=== PATIENT | female | born 1965 | race Caucasian/White ===

== ENCOUNTER → 2016-09-21 | Outpatient (CLI) | payer OTHER ==
[~2016-09-21] MED LIST: ASPIRIN ADULT L81 MG; ATENOLOL25 MG; CLEOCIN HCL150 MG PO; DARVOCET N 1001 TAB PO; DOXYCYCLINE MO100 MG PO; FAMOTIDINE40 MG; FLEXERIL5 MG PO; K-POTASSIUM CH20 MEQ; LASIX40 MG PO; LISINOPRIL HCTZ1 TA1; LISINOPRIL10 M1 PO; MICARDIS80 MG; MOBIC15 MG PO; OXYBUTYNIN5 MG PO; PEN-VEE K500 MG PO; PREDNISONE20 M1 PO; ROBITUSSIN AC 110 ML PO; ROBITUSSIN DM 105 ML PO; SYNTHROID25 MCG PO; TENORMIN25 M1 PO; TRAMADOL HCL50 MG PO; VESICARE5 MG; VITAMIN D22000 UNIT PO; VOLTAREN50 M1 PO; ZITHROMAX Z PA250 MG PO; ZITHROMAX250 MG PO
== END | disposition home or self-care (01) ==
LOC: PHLEB 02:50
DX: D75.1 Secondary polycythemia (principal)

== ENCOUNTER → 2016-12-21 | Outpatient (CLI) | payer OTHER ==
[2016-12-21 11:56] LABS: BUN 13 mg/dl (7-24); EST GLOM FILT AFRICAN AMERICAN > 60 ml/min
== END | disposition home or self-care (01) ==
LOC: LAB 11:07
PROVIDERS: Family Medicine
DX: R10.2 Pelvic and perineal pain (principal)

== ENCOUNTER → 2016-12-22 | Outpatient (CLI) | payer OTHER | END | disposition home or self-care (01) | LOC: CT 00:39 | DX: K57.30 Diverticulosis of large intestine without perforation or abscess without bleeding (principal); R10.2 Pelvic and perineal pain; R10.32 Left lower quadrant pain; R16.0 Hepatomegaly, not elsewhere classified ==

== ENCOUNTER 2018-10-21 18:46 | Emergency (ER) | payer OTHER ==
[~2018-10-21] VITALS: Ht 157.4 cm; Wt 101.2 kg
--- NOTE | ~2018-10-21 | EKG ---
[place], [place] ELECTROCARDIOGRAM REPORT NAME: NIKO HERNANDEZ UNIT #: [id number] ROOM: DOCTOR: NORI DRAFT REPORT BIRTHDATE: [birth year] [facility] Test Date: 2018-10-21 Test Time: 18:50:10 Pat Name: NIKO HERNANDEZ Department: Room: Gender: F Framing Carpenter: Estevan Ozuna : 1965 Requested By: SHERRIE COLLADO Order Number: [id number] Reading MD: Sera Cantrell MD Measurements Intervals [place] Rate: 100 P: 53 [place]: 180 QRS: 26 QRSD: 102 T: 56 QT: 341 QTc: 440 Interpretive Statements Sinus tachycardia Normal pattern Electronically Signed On 10-23-2018 8:02:50 PDT by Sera Cantrell MD CM:[email or web address]:ELECTROCARDIOGRAM REPORT [id number] SHERRIE JULIO DRAFT REPORT SHERRIE COLLADO MD
[2018-10-21 19:10] LABS: BASO % 0.4 % (0.0-1.0); EOS # 0.1 10*3/uL (0.0-0.4); EOS % 1.2 % (1.0-4.0); HEMATOCRIT 53.7 % (37.0-47.0); LYMPH # 3.1 10*3/uL (1.3-4.4); LYMPH % 31.2 % (27.0-41.0); MEAN CORPUSCULAR HGB 30.1 pg (27.0-31.0); MEAN CORPUSCULAR HGB CONC 31.7 g/dl (33.0-37.0); MEAN PLATELET VOLUME 10.3 fl (9.6-12.3); MONO # 0.8 10*3/uL (0.1-1.0); MONO % 8.4 % (3.0-9.0); NEUT # 5.7 10*3/uL (2.3-7.9); NEUT % 58.5 % (47.0-73.0); PLATELET COUNT AUTOMATED 242 10*3/uL (130-400); RED BLOOD COUNT 5.65 10*6/uL (4.10-5.10); RED CELL DISTRI WIDTH 13.1 % (0-14.5); WHITE BLOOD COUNT 9.8 10*3/uL (4.8-10.8)
[2018-10-21 19:48] LABS: ACT PARTIAL THROMBO TIME 25.7 SECONDS (20.8-31.5)
[2018-10-21 19:54] LABS: ALKALINE PHOSPHATASE 60 U/L (45-117); BUN 12 mg/dl (7-24); CHLORIDE 104 mmol/L (98-107); CREATININE 0.62 mg/dL (0.55-1.02); POTASSIUM 3.5 mmol/L (3.5-5.1); SGOT/AST 8 IU/L (3-35); SGPT/ALT 15 U/L (12-78); SODIUM 141 mmol/L (136-145); TOTAL PROTEIN 7.2 gm/dL (6.4-8.2)
[2018-10-21 19:58] LABS: TROPONIN I < 0.015 ng/ml (<0.045)
[2018-10-21 20:09] VITALS: BP 161/83
[2018-10-21] MEDS ORDERED: LEVAQUIN750 M1 PO (20:20)
[2018-10-23] MEDS ORDERED: VIBRAMYCIN100 MG PO (15:07)
[2018-10-23] MEDS ORDERED: LIDEX 0.05% CRE15 GM T (15:07)
== END 2018-10-21 20:30 | disposition left against medical advice (07) ==
LOC: ED 18:46
PROVIDERS: Emergency Medicine
DX: J18.1 Lobar pneumonia, unspecified organism (principal); I50.9 Heart failure, unspecified; J44.9 Chronic obstructive pulmonary disease, unspecified; F17.200 Nicotine dependence, unspecified, uncomplicated; Z79.2 Long term (current) use of antibiotics; Z79.899 Other long term (current) drug therapy

== ENCOUNTER → 2018-11-30 | Outpatient (CLI) | payer OTHER ==
[~2018-11-30] MED LIST changes: +CLINDAMYCIN HC300 MG PO; +LEVAQUIN750 M1 PO; +LIDEX 0.05% CRE15 GM T; +VIBRAMYCIN100 MG PO
== END | disposition home or self-care (01) ==
LOC: CARD 14:00
DX: I35.0 Nonrheumatic aortic (valve) stenosis (principal); R01.1 Cardiac murmur, unspecified

== ENCOUNTER 2019-03-09 16:35 | Emergency (ER) | payer OTHER ==
[~2019-03-09] VITALS: Ht 157.4 cm; Wt 92.1 kg
[2019-03-09 16:35] VITALS: BP 150/100
[~2019-03-09 16:35] MED LIST changes: -CLINDAMYCIN HC300 MG PO
[2019-03-09] MEDS ORDERED: CLINDAMYCIN HC300 MG PO (17:08)
== END 2019-03-09 17:10 | disposition home or self-care (01) ==
LOC: ED 16:35
DX: N61.1 Abscess of the breast and nipple (principal); Z88.1 Allergy status to other antibiotic agents; Z79.2 Long term (current) use of antibiotics; Z79.899 Other long term (current) drug therapy

== ENCOUNTER 2019-03-12 20:05 | Emergency (ER) | payer OTHER ==
[~2019-03-12] VITALS: Ht 157.4 cm; Wt 106.6 kg
[~2019-03-12 20:05] MED LIST changes: +CLINDAMYCIN HC300 MG PO
[2019-03-12 20:08] VITALS: BP 160/108
== END 2019-03-12 21:58 | disposition home or self-care (01) ==
LOC: ED 20:05
DX: N61.1 Abscess of the breast and nipple (principal); I50.9 Heart failure, unspecified; Z79.899 Other long term (current) drug therapy; Z98.51 Tubal ligation status; Z88.1 Allergy status to other antibiotic agents

== ENCOUNTER 2019-05-18 22:42 | Emergency (ER) | payer OTHER ==
[~2019-05-18] VITALS: Ht 157.4 cm; Wt 99.3 kg
[2019-05-18 22:43] VITALS: BP 175/116
[2019-05-18] MEDS ORDERED: CLINDAMYCIN150 MG PO (23:06)
[2019-05-18] MEDS ORDERED: TOBREX OPHTH O3.5 GM T (23:06)
== END 2019-05-18 23:37 | disposition home or self-care (01) ==
LOC: ED 22:42
DX: H00.015 Hordeolum externum left lower eyelid (principal); H10.9 Unspecified conjunctivitis; J44.9 Chronic obstructive pulmonary disease, unspecified; I50.9 Heart failure, unspecified; I25.2 Old myocardial infarction; I11.0 Hypertensive heart disease with heart failure; F17.200 Nicotine dependence, unspecified, uncomplicated; Z88.1 Allergy status to other antibiotic agents

== ENCOUNTER 2019-07-01 03:11 | Emergency (ER) | payer SELFPAY ==
[~2019-07-01] VITALS: Ht 157.4 cm; Wt 103.4 kg
[~2019-07-01 03:11] MED LIST changes: +CLINDAMYCIN150 MG PO; +TOBREX OPHTH O3.5 GM T
[2019-07-01 03:12] VITALS: BP 158/106
== END 2019-07-01 04:31 | disposition home or self-care (01) ==
LOC: ED 03:11
DX: J02.8 Acute pharyngitis due to other specified organisms (principal); J44.9 Chronic obstructive pulmonary disease, unspecified; I25.2 Old myocardial infarction; I11.0 Hypertensive heart disease with heart failure; I50.9 Heart failure, unspecified; F17.210 Nicotine dependence, cigarettes, uncomplicated; Z88.1 Allergy status to other antibiotic agents; Z79.2 Long term (current) use of antibiotics

== ENCOUNTER 2019-09-28 20:30 | Emergency (ER) | payer SELFPAY ==
[~2019-09-28] VITALS: Ht 157.4 cm; Wt 85.7 kg
[2019-09-28 20:33] VITALS: BP 155/100
[2019-09-28] MEDS ORDERED: SEPTDS PO (21:40)
[2019-09-28] MEDS ORDERED: DOXYCYCLINE100 M3 PO (21:40)
== END 2019-09-28 22:06 | disposition home or self-care (01) ==
LOC: ED 20:30
DX: L02.411 Cutaneous abscess of right axilla (principal); J44.9 Chronic obstructive pulmonary disease, unspecified; I11.0 Hypertensive heart disease with heart failure; I50.9 Heart failure, unspecified; I25.2 Old myocardial infarction; F17.200 Nicotine dependence, unspecified, uncomplicated; Z88.8 Allergy status to other drugs, medicaments and biological substances; Z79.2 Long term (current) use of antibiotics; Z79.899 Other long term (current) drug therapy

== ENCOUNTER 2020-06-11 01:38 | Emergency (ER) | payer OTHER ==
[~2020-06-11] VITALS: Ht 157.4 cm; Wt 92.5 kg
[~2020-06-11 01:38] MED LIST changes: +DOXYCYCLINE100 M3 PO; +SEPTDS PO
[2020-06-11 01:52] VITALS: BP 157/74
== END 2020-06-11 02:22 | disposition left against medical advice (07) ==
LOC: ED 01:38
DX: K64.9 Unspecified hemorrhoids (principal); Z53.21 Procedure and treatment not carried out due to patient leaving prior to being seen by health care provider

== ENCOUNTER → 2020-07-28 | Outpatient (CLI) | payer OTHER | END | disposition home or self-care (01) | LOC: COVID19 14:43 | PROVIDERS: ATTEND Internal Medicine | DX: Z20.822 Contact with and (suspected) exposure to COVID-19 (principal) ==

== ENCOUNTER → 2021-07-28 | Outpatient (CLI) | payer OTHER | END | disposition home or self-care (01) | LOC: CARD 07-22 08:30 | PROVIDERS: ATTEND Physician Assistant | DX: I35.0 Nonrheumatic aortic (valve) stenosis (principal); R01.1 Cardiac murmur, unspecified ==

== ENCOUNTER 2023-03-23 12:09 | Emergency (ER) | payer MEDICAID ==
[~2023-03-23] VITALS: Wt 74.8 kg
[2023-03-23 12:49] LABS: HEMATOCRIT 52.9 % (37.0-47.0); MEAN CELL VOLUME 98.1 fl (81.0-99.0); MEAN CORPUSCULAR HGB 30.6 pg (27.0-31.0); MEAN CORPUSCULAR HGB CONC 31.2 g/dl (33.0-37.0); NUCLEATED RED BLOOD CELL 0.2 10*3/uL (0.0-0.0); NUCLEATED RED BLOOD CELL 1.4 % (0.0-0.0); PLATELET COUNT AUTOMATED 170 10*3/uL (130-400); RED BLOOD COUNT 5.39 10*6/uL (4.10-5.10); RED CELL DISTRI WIDTH 13.9 % (0-14.5); WHITE BLOOD COUNT 15.4 10*3/uL (4.8-10.8)
[2023-03-23 12:50] LABS: ABG BASE EXCESS -0.4 mmol/L (-2.0-2.0); ARTERIAL BLOOD GAS PH 7.217 (7.35-7.45); ARTERIAL BLOOD GAS PO2 109.5 (80-90)
[2023-03-23 13:00] LABS: ACT PARTIAL THROMBO TIME 28.7 SECONDS (20.0-32.1); INTERNATIONAL NORM RATIO 1.8 (2.0-3.5)
[2023-03-23 13:01] LABS: MANUAL DIFF REFLEX YES
[2023-03-23 13:26] LABS: BURR CELLS FEW; PLATELET SUFFICIENCY NORMAL (NORMAL); TOTAL CELLS COUNTED 100 #CELLS
[2023-03-23 13:32] LABS: POTASSIUM 4.5 mmol/L (3.4-5.1); TOTAL PROTEIN 6.7 gm/dL (6.0-8.0)
[2023-03-23 15:27] LABS: ABG BASE EXCESS 0.3 mmol/L (-2.0-2.0); ARTERIAL BLOOD GAS PH 7.25 (7.35-7.45); ARTERIAL BLOOD GAS PO2 67.7 (80-90)
[2023-03-23 16:36] LABS: BILIRUBIN 2+ (Negative); BLOOD Negative (Negative); CLARITY Turbid (Clear); COLOR Dark Yellow (Yellow); GLUCOSE Negative (Negative); KETONE Trace (Negative); LEUKO ESTERASE 1+ (Negative); NITRITE Positive (Negative)
[2023-03-23 16:55] LABS: BACTERIA 2+
[2023-03-23 17:30] VITALS: BP 130/77
== END 2023-03-23 19:25 | disposition short-term general hospital (02) ==
LOC: ED 12:09
PROVIDERS: Internal Medicine
DX: R65.20 Severe sepsis without septic shock (principal); J96.02 Acute respiratory failure with hypercapnia; K56.699 Other intestinal obstruction unspecified as to partial versus complete obstruction; I21.4 Non-ST elevation (NSTEMI) myocardial infarction; J18.9 Pneumonia, unspecified organism; R74.01 Elevation of levels of liver transaminase levels; N39.0 Urinary tract infection, site not specified; I25.2 Old myocardial infarction; I11.0 Hypertensive heart disease with heart failure; I50.9 Heart failure, unspecified; J44.9 Chronic obstructive pulmonary disease, unspecified; Z88.1 Allergy status to other antibiotic agents; Z98.51 Tubal ligation status; Z95.5 Presence of coronary angioplasty implant and graft; F17.290 Nicotine dependence, other tobacco product, uncomplicated